=== PATIENT | male | born 1940 | race Caucasian/White ===

== ENCOUNTER 2021-01-31 05:19 | Emergency (ER) | payer MEDICARE ==
[~2021-01-31] VITALS: Ht 177.8 cm; Wt 75.8 kg
== END 2021-01-31 06:30 | disposition home or self-care (01) ==
LOC: ER 05:19
DX: U07.1 COVID-19 (principal); I10 Essential (primary) hypertension; Z87.891 Personal history of nicotine dependence
CPT/HCPCS: 71045; 99284-25

== ENCOUNTER 2021-09-09 09:20 | Emergency (ER) | payer MEDICARE ==
[~2021-09-09] VITALS: Ht 177.8 cm; Wt 73.5 kg
== END 2021-09-09 09:59 | disposition home or self-care (01) ==
LOC: ER 09:20
DX: K40.90 Unilateral inguinal hernia, without obstruction or gangrene, not specified as recurrent (principal)
CPT/HCPCS: 99283-25

== ENCOUNTER 2022-03-02 09:15 | Day surgery (SDC) | payer MEDICARE ==
[~2022-03-02] VITALS: Ht 177.8 cm; Wt 69.6 kg
[~2022-03-02 09:15] MED LIST: CYCL10 PO; IBUP400 PO; MIRALAX17 GM PO; MULVITA PO
--- NOTE | 2022-03-02 10:38 | NUR ---
Ambulatory in Day Surgery Surgical site prepped with 2% Chlorhexidine cloth wipe. Ricardo Paws warming gown applied. History, Chart, Medications and Allergies reviewed before start of procedure.Lungs clear T/O to Auscultation. Patient confirms NPO status and agrees with scheduled surgery. Pre-Op teaching done. Pt verbalizes understanding. Patient States Post-Procedure ride home has been arranged. Patient reports completing Chlorhexadine shower X2 prior to admission to hospital.
--- NOTE | 2022-03-02 14:37 | NUR ---
SPEND SOME TIME REASSURING PATIENT ORIENTING TO PLACE AND REASON HE IS HERE . HE STATES "OH YEA" WHEN i HAVE TOLD HIM SEVERAL TIMES ENCOURING DEEP SLOW BREATHS APPEARS TO BE ANXIOUS STATES PAIN IS NOW LESS RATES AT 6/10 MEDICATING PRESCRIBED
--- NOTE | 2022-03-02 15:08 | NUR ---
PT AT BEDSIDE
--- NOTE | 2022-03-02 15:16 | NUR ---
Dressing to procedure site clean, dry, intact with no visible drainage, swelling, erythema or bruising noted. ICE PACK APPLIED TO ABD INCISION SITE
--- NOTE | 2022-03-02 15:25 | NUR ---
Discharge instructions reviewed with patient. Patient verbalizes understanding. Copy given to patient to take home.
--- NOTE | 2022-03-02 15:51 | NUR ---
PT FEELING NAUSEATED WITH MOVEMENT. IV ZOFRAN GIVEN
--- NOTE | 2022-03-02 16:02 | NUR ---
Discharged via wheelchair to private car for ride home.
--- NOTE | 2022-03-05 15:46 | NUR ---
03/05/22 1546 Keely Anderson VERIFICATIONS: EDIT CHART.
== END 2022-03-02 16:01 | disposition home or self-care (01) ==
LOC: ORSCMMR 09:15 → ORD 09:30 → ORSCMMR 10:45
PROVIDERS: Surgery
PROC: 0YU54JZ Supplement Right Inguinal Region with Synthetic Substitute, Percutaneous Endoscopic Approach (ICD-10-PCS; principal; 2022-03-02 10:45)
PROC: 8E0W4CZ Robotic Assisted Procedure of Trunk Region, Percutaneous Endoscopic Approach (ICD-10-PCS; principal; 2022-03-02 10:45)
DX: K40.91 Unilateral inguinal hernia, without obstruction or gangrene, recurrent (principal); I10 Essential (primary) hypertension; Z85.46 Personal history of malignant neoplasm of prostate; M35.3 Polymyalgia rheumatica; I25.10 Atherosclerotic heart disease of native coronary artery without angina pectoris; Z79.899 Other long term (current) drug therapy
CPT/HCPCS: 49651; S2900; A9270; C1781; J0690; J1100; J2405; J2704; J3010; J7120